=== PATIENT | male | born 1995 | race Caucasian/White ===

== ENCOUNTER 2022-11-09 20:49 | Emergency (ER) | payer BC, SELFPAY ==
[2022-11-09 20:56] VITALS: BP 113/70; PULSE 99; RESP 18; TEMP 37.5; O2SAT 95
--- NOTE | 2022-11-09 21:21 | ED_ITS ---
HPI - General Adult General Time Seen by Provider: 21:21 Date Seen: 11/09/22 Chief complaint: Unspecified Complaint, Adult Stated complaint: Potential heat exhaustion Time Seen by Provider: 11/09/22 21:14 Source: patient, family, RN notes reviewed and old records reviewed Mode of arrival: ambulatory Limitations: no limitations History of Present Illness HPI narrative: 27-year-old male who comes in today with fever, body aches, chills, nausea vomiting. Patient started feeling poorly 2 days ago with chills and body aches, vomiting yesterday which is improved but continued fever today, T-max 102.9?. Last Tylenol was about 3 hours prior to coming the emergency department. He denies chest pain, cough, sore throat, runny nose, abdominal pain, diarrhea, rashes. Recent travel to [facility]. Related Data Home Medications Medication Instructions Recorded Confirmed No Known Home Medications 11/09/22 11/09/22 Allergies Allergy/AdvReac Type Severity Reaction Status Date / Time No Known Drug Allergies Allergy Verified 11/09/22 20:56 PFSH PFS Social History Smoking Status: Never smoker Non-prescribed substance use: denies use Exam Narrative: Exam Narrative: General: Well-developed and well-nourished, no acute distress Head: Atraumatic and normocephalic Eyes: Pupils are equal reactive, extraocular motions intact, conjunctiva clear ENT: External nose and ears are normal, posterior pharynx without erythema or exudate Neck: No midline cervical tenderness, full spontaneous range of motion the neck, trachea midline, no adenopathy Heart: Tachycardic but regular Lungs: Clear to auscultation bilaterally without wheezes or crackles Abdomen: Soft, nontender, nondistended with active bowel sounds Musculoskeletal: No tenderness, deformity, or edema Neurologic: Awake, alert, and oriented x3, no gross focal neurologic deficits, cranial nerves intact as tested Psych: Mood and affect are appropriate Skin: No rashes Const: Vital Signs, click to edit/add: Vital Signs - 24 hr 11/09/22 20:56 11/09/22 23:00 Temperature 99.5 F 98.4 F Pulse Rate [Left P ulse Oximeter] 99 69 Respiratory Rate 18 16 Blood Pressure [Ri ght Upper Arm] 113/70 115/76 Pulse Oximetry 95 98 Oxygen Delivery Me thod Room Air Room Air Course Course Hospital Course: Patient seen and examined, prior records are reviewed. Patient presents today with fever and chills, vomiting. Question some crackles in the left lung on exam, symptom could represent pneumonia. Will recheck COVID and flu although patient reports a negative COVID test at home. Consider tick-borne illness such is human agranulocytosis or Lyme. No urinary symptoms, no abdominal tenderness on exam. Patient's symptoms most likely will be related to viral illness but will rule out other causes of adult fever. No nuchal rigidity and only mild headache, meningitis or encephalitis unlikely. Reevaluation(s) Time of Reevaluation #1: 22:28 Reevaluation #1: Labs independently interpreted by me with thrombocytopenia as well as leukopenia consistent with viral illness, however also slight elevation in liver tests which could be from viral illness but also would be consistent with ehrlichiosis. Chest x-ray independently interpreted by me is negative for acute findings. Time of Reevaluation #2: 23:09 Reevaluation #2: Labs independently interpreted by me with negative COVID, negative influenza. Patient recheck. Heart rate has improved after fluids and Toradol. We discussed lab findings with mild leukopenia, mild thrombocytopenia, and elevated transaminases. We discussed that this could be related to a viral illness but also would be a pattern seen and ehrlichiosis although patient does not have hyponatremia. Discussed starting doxycycline now pending test results verses wa iting until after results are back. Patient would like to wait as he has no known tick bites in spite of being in with in [place] recently. Patient is stable for discharge with continued symptom management. Vital Signs Vital signs: Initial Vital Signs Temperature 99.5 F 11/09/22 20:56 Temperature Source Temporal Artery Scan 11/09/22 20:56 Pulse Rate 99 11/09/22 20:56 Pulse Rhythm Regular 11/09/22 20:56 Respiratory Rate 18 11/09/22 20:56 Blood Pressure 113/70 11/09/22 20:56 Blood Pressure Mean 84 11/09/22 20:56 Blood Pressure Position Sitting 11/09/22 20:56 Pulse Oximetry 95 11/09/22 20:56 Oxygen Delivery Method Room Air 11/09/22 20:56 Vital Signs Temperature 99.5 F 11/09/22 20:56 Pulse Rate 99 11/09/22 20:56 Respiratory Rate 18 11/09/22 20:56 Blood Pressure 113/70 11/09/22 20:56 Pulse Oximetry 95 11/09/22 20:56 Oxygen Delivery Method Room Air 11/09/22 20:56 Temperature 98.4 F 11/09/22 23:00 Pulse Rate 69 11/09/22 23:00 Respiratory Rate 16 11/09/22 23:00 Blood Pressure 115/76 11/09/22 23:00 Pulse Oximetry 98 11/09/22 23:00 Oxygen Delivery Method Room Air 11/09/22 23:00 Medical Decision Making Lab Data Labs: Lab Results 11/09/22 11/09/22 11/09/22 Range/Units 21:45 21:45 21:45 WBC 2.27 L (4.50-11.00) K/uL RBC 5.35 (4.30-5.90) m/uL Hgb 16.6 (13.5-17.5) gm/dL Hct 45.7 (37.0-53.0) % MCV 85 (80-100) fL MCH 31 (26-34) pg MCHC 36 (32-36) gm/dL RDW Coeff of Zoila 10.7 L (11.5-15.5) % Plt Count 109 L (140-440) K/uL Neut % (Auto) 68.8 (42.0-72.0) % Lymph % (Auto) 17.2 L (20-44) % [facility] % (Auto) 13.2 H (0.0-11.0) % Eos % (Auto) 0.0 (0.0-7.0) % Baso % (Auto) 0.4 (0.0-3.0) % Neut # (Auto) 1.60 L (1.7-7.0) K/uL Lymph # (Auto) 0.40 L (0.90-2.90) K/uL [facility] # (Auto) 0.30 (0.00-0.90) K/UL Eos # (Auto) 0.00 (0.00-0.50) K/uL Baso # (Auto) 0.00 (0.00-0.30) K/uL Abs Immat Gran (auto) 0.00 (0.00-0.30) K/uL Imm/Tot Granulo (auto) 0.4 % Sodium 136 (135-149) mmol/L Potassium 3.5 L (3.6-5.1) mmol/L Chloride 100 (96-114) mmol/L Carbon Dioxide 26 (20-32) mmol/L BUN 15 (5-24) mg/dL Creatinine 1.3 (0.5-1.5) mg/dL Estimated GFR 76 ml/min Glucose 119 H (60-115) mg/dL Lactate 0.9 (0.5-1.9) mmol/L Calcium 8.5 (8.4-10.6) mg/dL Total Bilirubin 1.0 Cancelled (0.1-1.5) mg/dL Direct Bilirubin 0.1 Cancelled (0.0-0.5) mg/dL AST 80 H (12-35) U/L ALT (4-50) U/L Alkaline Phosphatase (40-150) U/L Total Protein (6.0-8.3) g/dL Albumin (3.3-5.0) g/dL SARS-CoV-2 (PCR) (Negative) Influenza Type A (PCR) (Negative) Influenza Type B (PCR) (Negative) 11/09/22 11/09/22 11/09/22 Range/Units 21:45 21:45 21:45 WBC (4.50-11.00) K/uL RBC (4.30-5.90) m/uL Hgb (13.5-17.5) gm/dL Hct (37.0-53.0) % MCV (80-100) fL MCH (26-34) pg MCHC (32-36) gm/dL RDW Coeff of Zoila (11.5-15.5) % Plt Count (140-440) K/uL Neut % (Auto) (42.0-72.0) % Lymph % (Auto) (20-44) % [facility] % (Auto) (0.0-11.0) % Eos % (Auto) (0.0-7.0) % Baso % (Auto) (0.0-3.0) % Neut # (Auto) (1.7-7.0) K/uL Lymph # (Auto) (0.90-2.90) K/uL [facility] # (Auto) (0.00-0.90) K/UL Eos # (Auto) (0.00-0.50) K/uL Baso # (Auto) (0.00-0.30) K/uL Abs Immat Gran (auto) (0.00-0.30) K/uL Imm/Tot Granulo (auto) % Sodium (135-149) mmol/L Potassium (3.6-5.1) mmol/L Chloride (96-114) mmol/L Carbon Dioxide (20-32) mmol/L BUN (5-24) mg/dL Creatinine (0.5-1.5) mg/dL Estimated GFR ml/min Glucose (60-115) mg/dL Lactate (0.5-1.9) mmol/L Calcium (8.4-10.6) mg/dL Total Bilirubin (0.1-1.5) mg/dL Direct Bilirubin (0.0-0.5) mg/dL AST Cancelled (12-35) U/L ALT 92 H Cancelled (4-50) U/L Alkaline Phosphatase 70 Cancelled (40-150) U/L Total Protein 7.7 (6.0-8.3) g/dL Albumin (3.3-5.0) g/dL SARS-CoV-2 (PCR) (Negative) Influenza Type A (PCR) (Negative) Influenza Type B (PCR) (Negative) 11/09/22 11/09/22 Range/Units 21:45 21:45 WBC (4.50-11.00) K/uL RBC (4.30-5.90) m/uL Hgb (13.5-17.5) gm/dL Hct (37.0-53.0) % MCV (80-100) fL MCH (26-34) pg MCHC (32-36) gm/dL RDW Coeff of Zoila (11.5-15.5) % Plt Count (140-440) K/uL Neut % (Auto) (42.0-72.0) % Lymph % (Auto) (20-44) % [facility] % (Auto) (0.0-11.0) % Eos % (Auto) (0.0-7.0) % Baso % (Auto) (0.0-3.0) % Neut # (Auto) (1.7-7.0) K/uL Lymph # (Auto) (0.90-2.90) K/uL [facility] # (Auto) (0.00-0.90) K/UL Eos # (Auto) (0.00-0.50) K/uL Baso # (Auto) (0.00-0.30) K/uL Abs Immat Gran (auto) (0.00-0.30) K/uL Imm/Tot Granulo (auto) % Sodium (135-149) mmol/L Potassium (3.6-5.1) mmol/L Chloride (96-114) mmol/L Carbon Dioxide (20-32) mmol/L BUN (5-24) mg/dL Creatinine (0.5-1.5) mg/dL Estimated GFR ml/min Glucose (60-115) mg/dL Lactate (0.5-1.9) mmol/L Calcium (8.4-10.6) mg/dL Total Bilirubin (0.1-1.5) mg/dL Direct Bilirubin (0.0-0.5) mg/dL AST (12-35) U/L ALT (4-50) U/L Alkaline Phosphatase (40-150) U/L Total Protein Cancelled (6.0-8.3) g/dL Albumin 4.6 Cancelled (3.3-5.0) g/dL SARS-CoV-2 (PCR) Negative SARS-CoV-2 (Negative) Influenza Type A (PCR) Negative PCR FLU A (Negative) Influenza Type B (PCR) Negative PCR FLU B (Negative) Discharge Plan Discharge Clinical Impression: Acute viral syndrome Patient Disposition: Home w/ Parent or Adult Condition: Stable Instructions: Viral Syndrome (ED) Additional Instructions: Tylenol every 6 hours alternating with ibuprofen every 6 hours Lots of fluids and rest Activity Level: No Restrictions Prescriptions: No Action No Known Home Medications Stand Alone Forms: MyHealth Info Instructions
--- NOTE | 2022-11-09 21:30 | CRLHL7_ITS ---
For Patients: As a result of the Cures Act, medical imaging exams and procedure reports are released immediately into your electronic medical record. You may view this report before your referring provider. If you have questions, please contact your health care provider. INDICATION: Fever TECHNIQUE: Chest 2 views. COMPARISON: None. FINDINGS: Cardiovascular and mediastinum: Heart size and vasculature are normal in caliber and appearance. Mediastinum is within normal limits. Lungs and pleural spaces: Lungs are clear. No sign of infiltrate or mass. No sign of pleural effusion. No pneumothorax. Bones and soft tissues: No significant findings. IMPRESSION: No sign of acute disease. Dictated by Queenie French MD @ 11/09/2022 11:04:51 PM (Electronically Signed)
[2022-11-09 21:59] LABS: Basophils Percent Auto 0.4 % (0.0-3.0); Hematocrit 45.7 % (37.0-53.0); Hemoglobin* 16.6 gm/dL (13.5-17.5); Immature Granulocytes Pct Auto 0.4 %; Lactate* 0.9 mmol/L (0.5-1.9); Lymphocytes Percent Auto 17.2 % (20-44); Mean Corpuscular HGB Conc 36 gm/dL (32-36); Mean Corpuscular Hemoglobin 31 pg (26-34); Mean Corpuscular Volume 85 fL (80-100); Monocytes Percent Auto 13.2 % (0.0-11.0); Neutrophils Percent Auto 68.8 % (42.0-72.0); Platelet Count* 109 K/uL (140-440); RDW Coefficient of Variation % 10.7 % (11.5-15.5); Red Blood Count 5.35 m/uL (4.30-5.90); White Blood Count* 2.27 K/uL (4.50-11.00)
[2022-11-09] MEDS: 0.9 % SODIUM CHLORIDE 1000 ml 1,000 ML IV (22:03)
[2022-11-09] MEDS: KETOROLAC 15 MG/ML inj IVP (22:03)
[2022-11-09 22:13] LABS: Slide Review Reflex No
[2022-11-09 22:19] LABS: Albumin* 4.6 g/dL (3.3-5.0); Chloride* 100 mmol/L (96-114); Potassium* 3.5 mmol/L (3.6-5.1); Sodium* 136 mmol/L (135-149)
[2022-11-09 22:21] LABS: Creatinine* 1.3 mg/dL (0.5-1.5); Estimated Glomerular Filt Rate 76 ml/min
[2022-11-09 22:22] LABS: Alanine Aminotransferase* 92 U/L (4-50); Alkaline Phosphatase* 70 U/L (40-150); Aspartate Amino Transferase* 80 U/L (12-35); Bilirubin Direct* 0.1 mg/dL (0.0-0.5); Blood Urea Nitrogen* 15 mg/dL (5-24); Calcium* 8.5 mg/dL (8.4-10.6); Carbon Dioxide* 26 mmol/L (20-32); Glucose* 119 mg/dL (60-115); Total Protein* 7.7 g/dL (6.0-8.3)
[2022-11-09 22:39] LABS: PCR FLU A Negative PCR FLU A (Negative); PCR FLU B Negative PCR FLU B (Negative)
[2022-11-09 22:56] LABS: SARS PCR* Negative SARS-CoV-2 (Negative)
[2022-11-09 23:00] VITALS: BP 115/76; PULSE 69; RESP 16; TEMP 36.9; O2SAT 98
[2022-11-13 14:53] LABS: Anaplasma phagocyt PCR Not Detected; Babesia microti by PCR Not Detected; Babesia species by PCR Not Detected; Ehrlichia chaffeensis by PCR Not Detected; Ehrlichia ewingii/canis by PCR Not Detected; Ehrlichia muris-like by PCR Not Detected
== END 2022-11-09 23:29 | disposition home or self-care (01) ==
PROVIDERS: Emergency Provider Family Medicine
DX: B34.9 Viral infection, unspecified (principal)
CPT/HCPCS: 36415; 71046; 80048; 80076; 83605; 85025; 87040; 87631; 87798; 96374; 99283; 99284; J1885; J7030